=== PATIENT | female | born 1965 | race Caucasian/White ===

== ENCOUNTER 2022-08-25 16:19 | Emergency (ER) | payer OTHER, SELFPAY ==
[2022-08-25 16:30] VITALS: BP 139/82; PULSE 104; RESP 16; TEMP 36.6; O2SAT 98
--- NOTE | 2022-08-25 17:23 | W.ED.GENADLT ---
HPI - General Adult General: Chief complaint: Needlestick/Injury/Exposure Stated complaint: needlestick Time Seen by Provider: 08/25/22 17:23 History of Present Illness: 57-year-old female comes in today for complaints of needlestick. 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 Patient was sent to emergency department for routine laboratory draw after needlestick. Patient appears nontoxic. Patient appears no acute distress. Review of Systems Const: Denies: fever(s) GI: Denies: abdominal pain Skin/Breast: Reports: other (Needlestick) Physical Exam Const: COMMON NORMALS: alert HENMT: COMMON NORMALS: normocephalic HEAD & SCALP: normocephalic Neck/C-Spine: COMMON NORMALS: full ROM Resp: COMMON NORMALS: normal respiratory effort and clear to auscultation bilaterally AUSCULTATION: clear to auscultation bilaterally Cardio: COMMON NORMALS: regular rate and regular rhythm RATE: regular rate RHYTHM: regular rhythm Extremity: LEFT LOWER EXTREMITY: Yes foot & digits (No significant visible injury.) Left foot and digits: Yes inspection and Yes ROM Neuro: SENSORIUM/ORIENTATION: Yes alert Skin: TRAUMA: puncture (No obvious wound to the left hand.) Course Vital Signs: Vital signs: Vital Signs Temperature 97.8 F 08/25/22 16:30 Pulse Rate 104 H 08/25/22 16:30 Respiratory Rate 16 08/25/22 16:30 Blood Pressure 139/82 08/25/22 16:30 Pulse Oximetry 98 08/25/22 16:30 MDM - General Adult Medical Decision Making 57-year-old female comes in today with needlestick to the left palmar hand. 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 On exam there is no obvious injury is noted to the hand. Patient has good range of motion of the hand. Patient has normal sensation to the hand. Immunizations are up-to-date for patient. Differential diagnosis includes but not limited to puncture wound, exposure to blood, exposure to infectious substance. Tetanus was up-to-date per patient. Laboratory draw was completed for CBC, CMP, acute hepatitis panel, and HIV 1 and 2 rapid testing. Patient has been notified by management that blood work was being obtained from the patient and patient wants to wait until those results to decide on postexposure prophylaxis therapy for HIV. Patient was recommended to follow-up with employee health or Worker's Compensation clinic. Discharge Plan Discharge Patient Disposition: Home Clinical Impression: Needle stick injury, Exposure to blood or body fluid Condition: Stable Prescriptions: No Action glipizide 10 mg tablet 10 mg PO DAILY atomoxetine [Strattera] 40 mg capsule 40 mg PO DAILY Discharge Orders: Discharge ED (Routine); Ordered 08/25/22 Ordered By: Travis Tan Referrals: Maggy Soares FNP [Primary Care Provider] - Discharge Diet: Usual diet Discharge Activity: Increase activity as tolerated Patient Instructions: Needle Stick Injuries (ED) Activity Restrictions/Additional Instructions: Monitor site for signs of infection such as redness, fever, and swelling. Use acetaminophen or ibuprofen for pain. Follow-up with employee health for results of lab testing. If prophylaxis medication is needed for HIV exposure follow-up with Workmen's Compensation medical provider or clinic. Coding Level of Care Code ED Animal Physiologist for Amilcar Peña
[2022-08-25 17:59] LABS: Basophils % 0.4 %; Eosinophils # 0.2 10^3/uL (0.0-0.8); Eosinophils % 2.6 %; Hematocrit 40.3 % (37.0-47.0); Hemoglobin 12.5 g/dL (11.5-15.3); Lymphocytes # 2.5 10^3/uL (0.8-4.8); Lymphocytes % 34.6 %; Mean Corpuscular Hemoglobin 25.6 pg (28.0-34.0); Mean Corpuscular Volume 82.4 fl (81-99); Mean Platelet Volume 9.7 fL (7.4-10.4); Monocytes # 0.8 10^3/uL (0.2-0.9); Monocytes % 10.5 %; Neutrophils # 3.77 10^3/uL (1.8-7.7); Neutrophils % 51.6 %; Nucleated Red Blood Cells % 0 %; Platelet Count 395 10^3/cmm (130-400); Red Blood Count 4.89 10^6/uL (4.1-5.3); Red Cell Distribution Width 13.1 % (12.1-15.1); White Blood Count 7.3 10^3/uL (4.0-10.0)
[2022-08-25 18:16] LABS: Alanine Aminotransferase 26 U/L (0-33); Albumin Level 4.1 g/dL (3.5-5.2); Alkaline Phosphatase 76 U/L (35-105); Anion Gap 10.6 (5-19); Aspartate Amino Transferase 20 U/L (0-32); Blood Urea Nitrogen 24 mg/dL (6-20); Carbon Dioxide 27 mmol/L (22-29); Chloride 100 mmol/L (98-107); Globulin 2.6 g/dL (1.3-4.6); Glomerular Filtration Rate 64.3 mL/min (90-130); Glucose 90 mg/dL (65-115); Osmolality Calculated 282 mOsm/kg (285-295); Potassium 3.6 mmol/L (3.5-5.1); Sodium 134 mmol/L (136-145); Total Bilirubin 0.2 mg/dL (0.15-1.2); Total Protein 6.7 g/dL (6.6-8.7)
[2022-08-25 18:42] LABS: HIV 1 & 2 Antibody Non-Reactive (Non-Reactiv); HIV 1 & 2 Antigen Non-Reactive (Non-Reactiv)
[2022-08-25 23:09] LABS: Hepatitis A Antibody IgM Non-Reactive (Nonreactive); Hepatitis B Surface Antigen Non-Reactive (Nonreactive); Hepatitis C Virus Antibody Non-Reactive (Nonreactive)
[2022-08-26 05:09] LABS: Hepatitis B Core IgM Non-Reactive (Nonreactive)
== END 2022-08-25 18:06 | disposition home or self-care (01) ==
PROVIDERS: Emergency Provider Nurse Practitioner Family; PCP Registered Nurse
DX: S61.432A Puncture wound without foreign body of left hand, initial encounter (principal); W46.1XXA Contact with contaminated hypodermic needle, initial encounter
CPT/HCPCS: 36415; 80053; 80074; 85025; 87806; 99283

== ENCOUNTER 2022-11-02 05:54 | Emergency (ER) | payer OTHER, SELFPAY ==
[2022-11-02 06:03] VITALS: BP 130/86; PULSE 96; RESP 18; TEMP 35.7; O2SAT 96; BMI 30.4
--- NOTE | 2022-11-02 06:24 | ED_ITS ---
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 The needle was already been used to draw blood there was blood in the syringe at the time she was stuck. None of the blood was actually injected but she was stuck. The source patient has already agreed to testing. Patient desires recent months. Onset (ago): minute(s) Location: right and upper extremity (Hand) Severity: mild Pain Consistency: constant Relieving factors: none Exacerbating factors: none Associated symptoms: Deny chest pain, confusion, cough, diaphoresis, decreased appetite, dyspnea, fevers/chills, headache(s), malaise, nausea, rash, palpitations, seizures, short of breath, syncope, vomiting or weakness Review of Systems Const: Denies: fever(s), chills, malaise or diaphoresis ENMT: Denies: throat pain, nasal discharge or nasal congestion Card: Denies: chest pain, palpitations or syncope Resp: Denies: dyspnea, productive cough or non-productive cough GI: Denies: abdominal pain, nausea or vomiting : Denies: dysuria, urinary frequency or urinary urgency Skin/Breast: Denies: rash Neuro: Denies: headache(s) or confusion PFS ED PFSH: Medical History Diabetes Physical Exam Const: COMMON NORMALS: no acute distress GENERAL APPEARANCE: cooperative and comfortable ORIENTATION/CONSCIOUSNESS: Yes awake, Yes oriented to person, Yes oriented to place and Yes oriented to time HENMT: COMMON NORMALS: normocephalic, atraumatic and hearing grossly normal bilaterally HEAD & SCALP: normocephalic and atraumatic Resp: COMMON NORMALS: normal respiratory effort, No retractions, No use of accessory muscles and clear to auscultation bilaterally AUSCULTATION: clear to auscultation bilaterally Cardio: COMMON NORMALS: regular rate, regular rhythm and No murmurs present (Cardio) RATE: regular rate RHYTHM: regular rhythm Extremity: COMMON NORMALS: normal to inspection, capillary refill normal, no clubbing, cyanosis or edema, no calf tenderness and no pedal edema Neuro: SENSORIUM/ORIENTATION: Yes oriented to person, Yes oriented to place and Yes oriented to time Skin: COMMON NORMALS: no rashes or lesions noted GENERAL SKIN EXAM: no rashes or lesions noted Course Vital Signs: Vital signs: Vital Signs Temperature 96.2 F L 11/02/22 06:03 Pulse Rate 96 11/02/22 06:03 Respiratory Rate 18 11/02/22 06:03 Blood Pressure 130/86 11/02/22 06:03 Pulse Oximetry 96 11/02/22 06:03 Oxygen Delivery Me thod 11/02/22 06:03 MDM - General Adult Medical Decision Making Needlestick right hand. 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 Patient declines HIV prophylaxis. Follow-up with employee health may return to work for now Medical Records I reviewed the patient's medical records. Lab Data I reviewed the patient's lab results. 11/02/22 06:20 11/02/22 06:20 Laboratory Results WBC 8.2 10^3/uL (4.0-10.0) 11/02/22 06:20 RBC 5.03 10^6/uL (4.1-5.3) 11/02/22 06:20 Hgb 12.6 g/dL (11.5-15.3) 11/02/22 06:20 Hct 40.8 % (37.0-47.0) 11/02/22 06:20 MCV 81.1 fl (81-99) 11/02/22 06:20 MCH 25.0 pg (28.0-34.0) L 11/02/22 06:20 MCHC 30.9 g/dL (30.0-36.0) 11/02/22 06:20 RDW 14.1 % (12.1-15.1) 11/02/22 06:20 Plt Count 464 10^3/cmm (130-400) H 11/02/22 06:20 MPV 9.5 fL (7.4-10.4) 11/02/22 06:20 Neut % (Auto) 56.4 % 11/02/22 06:20 Lymph % (Auto) 32.1 % 11/02/22 06:20 [place] % (Auto) 8.6 % 11/02/22 06:20 Eos % (Auto) 1.7 % 11/02/22 06:20 Baso % (Auto) 0.5 % 11/02/22 06:20 Neut # (Auto) 4.64 10^3/uL (1.8-7.7) 11/02/22 06:20 Lymph # (Auto) 2.6 10^3/uL (0.8-4.8) 11/02/22 06:20 [place] # (Auto) 0.7 10^3/uL (0.2-0.9) 11/02/22 06:20 Eos # (Auto) 0.1 10^3/uL (0.0-0.8) 11/02/22 06:20 Baso # (Auto) 0.0 10^3/uL (0.0-0.1) 11/02/22 06:20 Nucleated RBC % (auto) 0 % 11/02/22 06:20 Nucleated RBCs # 0.0 /100WBC 11/02/22 06:20 Discharge Plan Discharge Patient Disposition: Home Clinical Impression: Needle stick injury of hand Condition: Stable Prescriptions: No Action glipizide 10 mg tablet 10 mg PO DAILY atomoxetine [Strattera] 40 mg capsule 40 mg PO DAILY amoxicillin 500 mg tablet 500 mg PO BID Qty: 20 0RF prednisone 20 mg tablet 20 mg PO DAILY Qty: 10 0RF Discharge Orders: Discharge ED (Routine); Ordered 11/02/22 Ordered By: Kvng Duran Referrals: Maggy Soares FNP [Primary Care Provider] - Discharge Diet: Usual diet Discharge Activity: Resume usual activity Patient Instructions: Opioid Safety, Pain Management Activity Restrictions/Additional Instructions: You are seen for a needlestick injury today. You declined HIV prophylaxis until the source patient testing has been completed follow-up with [facility] health for further rec COVID stations. Coding Level of Care Code ED Cover Inspector for Amilcar Peña
[2022-11-02 06:32] LABS: Basophils % 0.5 %; Eosinophils # 0.1 10^3/uL (0.0-0.8); Eosinophils % 1.7 %; Hematocrit 40.8 % (37.0-47.0); Hemoglobin 12.6 g/dL (11.5-15.3); Lymphocytes # 2.6 10^3/uL (0.8-4.8); Lymphocytes % 32.1 %; Mean Corpuscular HGB Conc 30.9 g/dL (30.0-36.0); Mean Corpuscular Volume 81.1 fl (81-99); Mean Platelet Volume 9.5 fL (7.4-10.4); Monocytes # 0.7 10^3/uL (0.2-0.9); Monocytes % 8.6 %; Neutrophils # 4.64 10^3/uL (1.8-7.7); Neutrophils % 56.4 %; Nucleated Red Blood Cells % 0 %; Platelet Count 464 10^3/cmm (130-400); Red Blood Count 5.03 10^6/uL (4.1-5.3); Red Cell Distribution Width 14.1 % (12.1-15.1); White Blood Count 8.2 10^3/uL (4.0-10.0)
[2022-11-02 07:03] LABS: Alanine Aminotransferase 32 U/L (0-33); Albumin Level 4.3 g/dL (3.5-5.2); Alkaline Phosphatase 63 U/L (35-105); Anion Gap 11.6 (5-19); Aspartate Amino Transferase 23 U/L (0-32); Blood Urea Nitrogen 22 mg/dL (6-20); Calcium 9.4 mg/dL (8.5-10.5); Carbon Dioxide 29 mmol/L (22-29); Chloride 101 mmol/L (98-107); Globulin 2.3 g/dL (1.3-4.6); Glomerular Filtration Rate 85.9 mL/min (90-130); Glucose 112 mg/dL (65-115); Osmolality Calculated 288 mOsm/kg (285-295); Potassium 4.6 mmol/L (3.5-5.1); Sodium 137 mmol/L (136-145); Total Bilirubin 0.2 mg/dL (0.15-1.2); Total Protein 6.6 g/dL (6.6-8.7)
[2022-11-02 07:13] LABS: Hepatitis A Antibody IgM Non-Reactive (Nonreactive); Hepatitis B Core IgM Non-Reactive (Nonreactive); Hepatitis B Surface Antigen Non-Reactive (Nonreactive); Hepatitis C Virus Antibody Non-Reactive (Nonreactive)
[2022-11-04 16:52] LABS: HIV 1 & 2 Antibody Non-Reactive (Non-Reactiv); HIV 1 & 2 Antigen Non-Reactive (Non-Reactiv)
== END 2022-11-02 06:37 | disposition home or self-care (01) ==
PROVIDERS: Emergency Provider Family Medicine; PCP Registered Nurse
DX: S61.431A Puncture wound without foreign body of right hand, initial encounter (principal); W46.1XXA Contact with contaminated hypodermic needle, initial encounter; Y92.238 Other place in hospital as the place of occurrence of the external cause; Y99.0 Civilian activity done for income or pay; E11.9 Type 2 diabetes mellitus without complications; Z79.84 Long term (current) use of oral hypoglycemic drugs
CPT/HCPCS: 80053; 80074; 85025; 87806; 99283

== ENCOUNTER 2023-09-04 18:18 | Outpatient (CLI) | payer OTHER, SELFPAY ==
[2023-09-04 18:45] LABS: Basophils % 0.4 %; Eosinophils # 0.2 10^3/uL (0.0-0.8); Hematocrit 38.2 % (36-47); Lymphocytes # 3.5 10^3/uL (0.8-4.8); Lymphocytes % 46.2 %; Mean Corpuscular HGB Conc 31.7 g/dL (30-55); Mean Corpuscular Hemoglobin 24.6 pg (27-33); Mean Corpuscular Volume 77.8 fl (85-98); Mean Platelet Volume 9.7 fL (7.4-10.4); Monocytes # 0.6 10^3/uL (0.2-0.9); Monocytes % 8.1 %; Neutrophils # 3.22 10^3/uL (1.8-7.7); Nucleated Red Blood Cells % 0 %; Platelet Count 331 10^3/cmm (157-399); Red Blood Count 4.91 10^6/uL (3.85-5.65); Red Cell Distribution Width 13.7 % (12.1-15.1); White Blood Count 7.49 10^3/uL (3.29-11.43)
[2023-09-04 19:12] LABS: Alanine Aminotransferase 19 U/L (0-33); Albumin Level 4.2 g/dL (3.5-5.2); Alkaline Phosphatase 70 U/L (35-105); Anion Gap 16.4 (5-19); Aspartate Amino Transferase 19 U/L (0-32); Blood Urea Nitrogen 21 mg/dL (6-20); Calcium 9.1 mg/dL (8.5-10.5); Carbon Dioxide 23 mmol/L (22-29); Chloride 104 mmol/L (98-107); Chol HDL Ratio 4.48 mg/dL (0.0-4.40); Cholesterol 215 mg/dL (0-200); Globulin 2.6 g/dL (1.3-4.6); Glomerular Filtration Rate 85.6 mL/min (90-130); Glucose 121 mg/dL (65-115); HDL Cholesterol 48 mg/dL (60-100); LDL Cholesterol Calculated 128 mg/dL (50-129); LDL HDL Ratio 2.67 RATIO (0.00-3.22); Osmolality Calculated 292 mOsm/kg (285-295); Potassium 4.4 mmol/L (3.5-5.1); Sodium 139 mmol/L (136-145); Thyroid Stimulating Hormone 1.77 uIU/mL (0.27-4.20); Total Bilirubin 0.2 mg/dL (0.15-1.2); Total Protein 6.8 g/dL (6.6-8.7); Triglycerides 196 mg/dL (0-150)
[2023-09-04 21:00] LABS: Estmated Average Glucose 157; Hemoglobin A1C 7.1 % (4.0-6.0)
== END 2023-09-04 18:19 | disposition home or self-care (01) ==
PROVIDERS: PCP Registered Nurse; Visit Provider Electrodiagnostic Medicine
DX: E11.9 Type 2 diabetes mellitus without complications (principal); Z79.899 Other long term (current) drug therapy
CPT/HCPCS: 80053; 80061; 83036; 84443; 85025

== ENCOUNTER 2023-10-07 13:55 | Outpatient (CLI) | payer OTHER, SELFPAY ==
--- NOTE | 2023-10-07 14:01 | MM_ITS ---
WS: [id number] BILATERAL 3D TOMOSYNTHESIS DIGITAL SCREENING MAMMOGRAPHY WITH CAD CLINICAL INFORMATION: SCREENING HISTORY: Screening mammogram. No current complaints. COMPARISON: 2019 TECHNIQUE: Bilateral CC and MLO views. FINDINGS: Scattered fibroglandular densities bilaterally. Biopsy clip LEFT breast. Small ovoid nodular density along the posterior nipple line RIGHT breast mid depth measuring 5 mm. Recommend further evaluation w ith spot diagnostic mammography and ultrasound. LEFT breast is unremarkable. IMPRESSION: MM/[place] [id number] BI-RADS: 0-Incomplete: Need additional imaging evaluation FOLLOW UP: Need Additional Imaging Recommend further evaluation with RIGHT breast spot diagnostic mammography and ultrasound.
--- NOTE | 2023-10-07 14:02 | XR_ITS ---
WS: [id number] DEXA (DUAL ENERGY X-RAY ABSORPTIOMETRY) Bone mineral density was performed using a eJamming machine. HISTORY: POST MENOPAUSAL COMPARISON: None available. Lumbar spine BMD (L1-L4): 0.962 g/cm2 T score: -1.8 Z score: -1.1 Total hip BMD: Left: 0.994 g/cm2. T score: -0.1 Z score: 0.5 Right: 0.965 g/cm2. T score: -0.3 Z score: 0.2 10 year probability of a major osteoporotic fracture is 6.7%. IMPRESSION: OSTEOPENIA based upon the WHO classification for females.
== END 2023-10-07 13:56 | disposition home or self-care (01) ==
LOC: RAD 13:55
PROVIDERS: PCP Electrodiagnostic Medicine; Visit Provider Electrodiagnostic Medicine
DX: M19.071 Primary osteoarthritis, right ankle and foot (principal); Z78.0 Asymptomatic menopausal state; M67.471 Ganglion, right ankle and foot; Z12.31 Encounter for screening mammogram for malignant neoplasm of breast
CPT/HCPCS: 73630; 77063; 77067; 77080

== ENCOUNTER 2023-11-12 08:26 | Outpatient (CLI) | payer OTHER, SELFPAY ==
--- NOTE | 2023-11-12 08:32 | MM_ITS ---
WS: [id number] RIGHT 3D TOMOSYNTHESIS DIGITAL MAMMOGRAPHY WITH CAD CLINICAL INFORMATION: ABNORMAL MAMMO HISTORY: Additional views COMPARISON: 10/07/2023 TECHNIQUE: 3 views of the right breast were obtained. FINDINGS: Scattered fibroglandular densities of the right breast. Stable small ovoid nodular density posterior nipple line RIGHT breast measuring 5 mm mid depth. Ultrasound is pending. ULTRASOUND BREAST RIGHT TECHNIQUE: Ultrasound right breast focused area of concern. CLINICAL INFORMATION: ABNORMAL MAMMO FINDINGS: Ultrasound subareolar RIGHT breast extending along the posterior nipple line. Dense parenchymal tissu e posterior to the RIGHT nipple. No suspicious cystic or solid lesion. No suspicious lesions to targe t for biopsy. Recommend return to annual screening mammography. IMPRESSION: MM/[place] [id number] BI-RADS: 2-Benign FOLLOW UP: 1 Year Follow-up Recommend return to annual screening mammography.
== END 2023-11-12 08:27 | disposition home or self-care (01) ==
LOC: RAD 08:26
PROVIDERS: PCP Electrodiagnostic Medicine; Visit Provider Electrodiagnostic Medicine
DX: N63.41 Unspecified lump in right breast, subareolar (principal); R92.8 Other abnormal and inconclusive findings on diagnostic imaging of breast; R92.321 Mammographic fibroglandular density, right breast
CPT/HCPCS: 76642; 77061; G0279

== ENCOUNTER 2024-06-16 12:33 | Outpatient (CLI) | payer OTHER, SELFPAY ==
[2024-06-16 13:54] LABS: HIV 1 & 2 Antibody Non-Reactive (Non-Reactiv); HIV 1 & 2 Antigen Non-Reactive (Non-Reactiv); Hepatitis B Surface AB 10.4 (11.5-1000); Hepatitis B Surface Antigen Non-Reactive (Nonreactive); Hepatitis C Virus Antibody Non-Reactive (Nonreactive)
== END 2024-06-16 12:34 | disposition home or self-care (01) ==
PROVIDERS: PCP Electrodiagnostic Medicine; Visit Provider Family Medicine
DX: Z01.89 Encounter for other specified special examinations (principal)
CPT/HCPCS: 86706; 86803; 87340; 87806

== ENCOUNTER 2024-09-06 15:16 | Outpatient (CLI) | payer SELFPAY ==
[2024-09-06 15:47] LABS: HF Add Manual Diff No
[2024-09-06 15:48] LABS: Basophils % 0.4 %; Eosinophils # 0.1 10^3/uL (0.0-0.8); Eosinophils % 1.8 %; Hematocrit 38.7 % (36-47); Lymphocytes # 2.8 10^3/uL (0.8-4.8); Lymphocytes % 36.4 %; Mean Corpuscular HGB Conc 31.5 g/dL (30-55); Mean Corpuscular Hemoglobin 24.9 pg (27-33); Mean Corpuscular Volume 79.1 fl (85-98); Mean Platelet Volume 9.4 fL (7.4-10.4); Monocytes # 0.6 10^3/uL (0.2-0.9); Monocytes % 8.2 %; Neutrophils # 4.01 10^3/uL (1.8-7.7); Neutrophils % 52.8 %; Nucleated Red Blood Cells % 0 %; Platelet Count 388 10^3/cmm (157-399); Red Blood Count 4.89 10^6/uL (3.85-5.65); Red Cell Distribution Width 14.3 % (12.1-15.1)
[2024-09-06 16:27] LABS: Estmated Average Glucose 180; Hemoglobin A1C 7.9 % (4.0-6.0)
[2024-09-06 16:52] LABS: Alanine Aminotransferase 42 U/L (0-33); Alkaline Phosphatase 89 U/L (35-105); Anion Gap 16.8 (5-19); Aspartate Amino Transferase 31 U/L (0-32); Blood Urea Nitrogen 26 mg/dL (8-23); Calcium 9.5 mg/dL (8.5-10.5); Carbon Dioxide 25 mmol/L (22-29); Chloride 103 mmol/L (98-107); Chol HDL Ratio 4.42 mg/dL (0.0-4.40); Cholesterol 212 mg/dL (0-200); Globulin 2.9 g/dL (1.3-4.6); Glomerular Filtration Rate 85.4 mL/min (90-130); Glucose 272 mg/dL (65-115); HDL Cholesterol 48 mg/dL (60-100); LDL Cholesterol Calculated 102 mg/dL (50-129); LDL HDL Ratio 2.13 RATIO (0.00-3.22); Osmolality Calculated 304 mOsm/kg (285-295); Potassium 4.8 mmol/L (3.5-5.1); Sodium 140 mmol/L (136-145); Thyroid Stimulating Hormone 2.64 uIU/mL (0.27-4.20); Total Bilirubin 0.2 mg/dL (0.15-1.2); Total Protein 6.9 g/dL (6.6-8.7); Triglycerides 311 mg/dL (0-150)
[2024-09-06 18:59] LABS: 25 Hydroxy Vitamin D 71 ng/mL (30-100)
== END 2024-09-06 15:17 | disposition home or self-care (01) ==
LOC: LAB 15:18
PROVIDERS: PCP Electrodiagnostic Medicine; Visit Provider Dermatology
DX: Z13.9 Encounter for screening, unspecified (principal)
CPT/HCPCS: 36415

== ENCOUNTER 2025-02-06 13:07 | Outpatient (CLI) | payer OTHER, SELFPAY ==
[2025-02-06 14:00] LABS: Hepatitis B Surface AB 9.7 (11.5-1000); Hepatitis B Surface Antigen Non-Reactive (Nonreactive); Hepatitis C Virus Antibody Non-Reactive (Nonreactive)
[2025-02-06 14:01] LABS: HIV 1 & 2 Antibody Non-Reactive (Non-Reactiv); HIV 1 & 2 Antigen Non-Reactive (Non-Reactiv)
== END 2025-02-06 13:08 | disposition home or self-care (01) ==
LOC: LAB 13:09
PROVIDERS: Visit Provider Family Medicine
DX: Z04.2 Encounter for examination and observation following work accident (principal)
CPT/HCPCS: 36415; 86706; 86803; 87340; 87806

== ENCOUNTER 2025-03-09 09:41 | Outpatient (CLI) | payer SELFPAY ==
[2025-03-09 10:20] LABS: HF Add Manual Diff No
[2025-03-09 10:23] LABS: Basophils % 0.5 %; Eosinophils # 0.1 10^3/uL (0.0-0.8); Eosinophils % 1.9 %; Hematocrit 37.1 % (36-47); Lymphocytes # 1.9 10^3/uL (0.8-4.8); Lymphocytes % 33.4 %; Mean Corpuscular HGB Conc 31.8 g/dL (30-55); Mean Corpuscular Hemoglobin 25.3 pg (27-33); Mean Corpuscular Volume 79.4 fl (85-98); Mean Platelet Volume 9.5 fL (7.4-10.4); Monocytes # 0.5 10^3/uL (0.2-0.9); Monocytes % 8.3 %; Neutrophils % 55.6 %; Nucleated Red Blood Cells % 0 %; Platelet Count 349 10^3/cmm (157-399); Red Blood Count 4.67 10^6/uL (3.85-5.65); Red Cell Distribution Width 13.2 % (12.1-15.1); White Blood Count 5.77 10^3/uL (3.29-11.43)
[2025-03-09 11:07] LABS: 25 Hydroxy Vitamin D 60 ng/mL (30-100); Alanine Aminotransferase 18 U/L (0-33); Albumin Level 4.1 g/dL (3.5-5.2); Alkaline Phosphatase 81 U/L (35-105); Anion Gap 18.2 (5-19); Aspartate Amino Transferase 16 U/L (0-32); Blood Urea Nitrogen 12 mg/dL (8-23); Calcium 8.9 mg/dL (8.5-10.5); Carbon Dioxide 23 mmol/L (22-29); Chloride 101 mmol/L (98-107); Chol HDL Ratio 4.52 mg/dL (0.0-4.40); Cholesterol 217 mg/dL (0-200); Globulin 2.5 g/dL (1.3-4.6); Glomerular Filtration Rate 85.1 mL/min (90-130); Glucose 281 mg/dL (65-115); HDL Cholesterol 48 mg/dL (60-100); LDL Cholesterol Calculated 132 mg/dL (50-129); LDL HDL Ratio 2.75 RATIO (0.00-3.22); Osmolality Calculated 296 mOsm/kg (285-295); Potassium 4.2 mmol/L (3.5-5.1); Sodium 138 mmol/L (136-145); Thyroid Stimulating Hormone 2.56 uIU/mL (0.27-4.20); Total Bilirubin 0.4 mg/dL (0.15-1.2); Total Protein 6.6 g/dL (6.6-8.7); Triglycerides 186 mg/dL (0-150)
[2025-03-09 11:21] LABS: Estmated Average Glucose 214; Hemoglobin A1C 9.1 % (4.0-6.0)
== END 2025-03-09 09:42 | disposition home or self-care (01) ==
LOC: LAB 09:44
PROVIDERS: PCP Electrodiagnostic Medicine; Visit Provider Dermatology
DX: Z01.89 Encounter for other specified special examinations (principal)

== ENCOUNTER 2025-06-08 09:54 | Outpatient (CLI) | payer SELFPAY ==
[2025-06-08 13:08] LABS: HF Add Manual Diff No
[2025-06-08 13:13] LABS: Hematocrit 41.8 % (36-47); Hemoglobin 13.10 g/dL (11.27-16.99); Mean Corpuscular HGB Conc 31.3 g/dL (30-55); Mean Corpuscular Hemoglobin 24.0 pg (27-33); Mean Corpuscular Volume 76.7 fl (85-98); Nucleated Red Blood Cells % 0 %; Platelet Count 395 10^3/cmm (157-399); Red Blood Count 5.45 10^6/uL (3.85-5.65); White Blood Count 7.59 10^3/uL (3.29-11.43)
[2025-06-08 13:33] LABS: Estmated Average Glucose 200; Hemoglobin A1C 8.6 % (4.0-6.0)
[2025-06-08 14:03] LABS: Alanine Aminotransferase 21 U/L (0-33); Albumin Level 4.3 g/dL (3.5-5.2); Alkaline Phosphatase 78 U/L (35-105); Anion Gap 12.9 (5-19); Aspartate Amino Transferase 20 U/L (0-32); Blood Urea Nitrogen 16 mg/dL (8-23); Calcium 9.5 mg/dL (8.5-10.5); Carbon Dioxide 28 mmol/L (22-29); Chloride 103 mmol/L (98-107); Cholesterol 258 mg/dL (0-200); Globulin 3.1 g/dL (1.3-4.6); Glucose 109 mg/dL (65-115); HDL Cholesterol 43 mg/dL (60-100); Osmolality Calculated 292 mOsm/kg (285-295); Potassium 3.9 mmol/L (3.5-5.1); Sodium 140 mmol/L (136-145); Thyroid Stimulating Hormone 2.24 uIU/mL (0.27-4.20); Total Protein 7.4 g/dL (6.6-8.7); Triglycerides 234 mg/dL (0-150)
== END 2025-06-08 09:55 | disposition home or self-care (01) ==
PROVIDERS: PCP Electrodiagnostic Medicine; Visit Provider Dermatology
DX: Z01.89 Encounter for other specified special examinations (principal)
CPT/HCPCS: 36415

== ENCOUNTER 2025-09-07 11:39 | Outpatient (CLI) | payer SELFPAY ==
[2025-09-07 12:38] LABS: HF Add Manual Diff No
[2025-09-07 12:53] LABS: Hematocrit 40.7 % (36-47); Hemoglobin 12.80 g/dL (11.27-16.99); Mean Corpuscular HGB Conc 31.4 g/dL (30-55); Mean Corpuscular Hemoglobin 25.2 pg (27-33); Mean Corpuscular Volume 80.1 fl (85-98); Nucleated Red Blood Cells % 0 %; Platelet Count 373 10^3/cmm (157-399); Red Blood Count 5.08 10^6/uL (3.85-5.65); White Blood Count 6.42 10^3/uL (3.29-11.43)
[2025-09-07 13:28] LABS: Estmated Average Glucose 160; Hemoglobin A1C 7.2 % (4.0-6.0)
[2025-09-07 13:32] LABS: Alanine Aminotransferase 29 U/L (0-33); Albumin Level 4.5 g/dL (3.5-5.2); Alkaline Phosphatase 71 U/L (35-105); Anion Gap 14.2 (5-19); Aspartate Amino Transferase 27 U/L (0-32); Blood Urea Nitrogen 18 mg/dL (8-23); Calcium 9.9 mg/dL (8.5-10.5); Carbon Dioxide 28 mmol/L (22-29); Chloride 100 mmol/L (98-107); Cholesterol 221 mg/dL (0-200); Globulin 2.7 g/dL (1.3-4.6); Glucose 110 mg/dL (65-115); HDL Cholesterol 46 mg/dL (60-100); Osmolality Calculated 289 mOsm/kg (285-295); Potassium 4.2 mmol/L (3.5-5.1); Sodium 138 mmol/L (136-145); Thyroid Stimulating Hormone 2.39 uIU/mL (0.27-4.20); Total Protein 7.2 g/dL (6.6-8.7); Triglycerides 232 mg/dL (0-150)
== END 2025-09-07 11:40 | disposition home or self-care (01) ==
PROVIDERS: PCP Electrodiagnostic Medicine; Visit Provider Dermatology
DX: Z01.89 Encounter for other specified special examinations (principal)